=== PATIENT | female | born 1980 | race Caucasian/White ===

== ENCOUNTER 2017-04-10 07:02 | Day surgery (SDC) | payer OTHER ==
[2017-04-10] MEDS ORDERED: Lactated Ringers 1,000 ML IV SCH (07:15)
[2017-04-10] MEDS ORDERED: Sodium Chloride 0.9% 10 ML Syringe FLUSH PRN (07:15)
[2017-04-10] MEDS ORDERED: Glycopyrrolate 0.2 MG/ML 5 ML MDV IV ONE (08:30)
[2017-04-10] MEDS ORDERED: Midazolam 1 MG/ML 2 ML SDV IV ONE (08:30)
[2017-04-10] MEDS ORDERED: Propofol 200 MG/20 ML SDV IV ONE (08:30)
[2017-04-10] MEDS ORDERED: Lidocaine 2% 100 MG/5 ML Syringe IVPUSH ONE (08:30)
--- NOTE | 2017-04-10 08:45 | PCM.OPNOTE ---
- General Post-Op/Procedure Note Date of Surgery/Procedure: 04/10/17 Operative Procedure(s): egd with bx Findings: erosive esophagitis Pre Op Diagnosis: ruq abd pain Post-Op Diagnosis: Same. erosive esophagitis Anesthesia Technique: MAC (s) Primary Surgeon: Dong Montez Anesthesia Provider: Waylon Bellamy Pathology: duodenum, stomach and distal esophagus Complications: None Condition: Good Free Text/Narrative:: see dictation
--- NOTE | 2017-04-10 09:48 | OR ---
DATE OF OPERATION: 04/10/2017 SURGEON: Dong Montez MD PROCEDURE PERFORMED: Esophagogastroduodenoscopy with cold forceps biopsy. PREOPERATIVE DIAGNOSIS: Right upper quadrant abdominal pain. POSTOPERATIVE DIAGNOSIS: Erosive esophagitis. INDICATIONS FOR PROCEDURE: This is a 36-year-old white female, who is referred with a history of right upper quadrant abdominal pain. Workup to date has been negative with regard to biliary disease. She was offered and accepted EGD to further evaluate for possible etiology. DESCRIPTION OF PROCEDURE: After an excellent IV sedation was administered, the bite block was inserted. The flexible endoscope was passed without difficulty down the patient's esophagus into the stomach. The stomach was insufflated. The scope was passed through the pylorus to the second portion of duodenum and slowly withdrawn. The following findings were noted. Duodenum was unremarkable. Biopsies were taken due to her complaint of pain. Stomach was essentially unremarkable. Biopsies were taken due to her complaint of pain. Esophagus at the distal esophagus, there was evidence of erosive esophagitis and biopsies were taken. The remainder of the esophageal exam was unremarkable. The length of the involvement was approximately 3 cm. The stomach was deflated, scope was removed. The patient tolerated the procedure well and was taken to recovery in good condition. /[id number] ANTONY/VIRIDIANA
[2017-04-10 09:52] VITALS: BP 126/86
== END 2017-04-10 10:15 | disposition home or self-care (01) ==
LOC: FB.SDS 07:02
PROVIDERS: ATTEND Surgery
DX: K29.50 Unspecified chronic gastritis without bleeding (principal); K29.80 Duodenitis without bleeding; K20.9 Esophagitis, unspecified; Z79.82 Long term (current) use of aspirin; Z79.899 Other long term (current) drug therapy; E66.01 Morbid (severe) obesity due to excess calories; Z68.43 Body mass index [BMI] 50.0-59.9, adult
CPT/HCPCS: 43239; 81025; J2250; J2704; J7120; 88305; 88313; 88342

== ENCOUNTER 2017-08-19 09:52 | Emergency (ER) | payer OTHER ==
[2017-08-19] MEDS ORDERED: Ketorolac 60 MG/2 ML SDV IM ONE (10:53)
[2017-08-19] MEDS ORDERED: Ciprofloxacin 500 MG Tab PO ONE (10:54)
[2017-08-19] MEDS ORDERED: metroNIDAZOLE 500 MG Tab PO ONE (10:55)
--- NOTE | 2017-08-19 12:17 | EDM.PDOC ---
ED HPI GENERAL MEDICAL PROBLEM - General Chief Complaint: Flank Pain Stated Complaint: ABDOMINAL PAIN Time Seen by Provider: 08/19/17 11:00 Source of Information: Reports: Patient History Limitations: Reports: No Limitations - History of Present Illness INITIAL COMMENTS - FREE TEXT/NARRATIVE: c/o fever and abd pain x 2d pain in LLQ not worked x 2d no radiation no dysuria, no frequency never had colonoscopy had EGD 04/[address] Montez, showed inflammation of esophagus, had been on Protonix, not now on meloxicam in past, not now not taken pain meds some nausea, no vomiting Flank Pain Score (Numeric/FACES): 4 - Related Data Allergies Allergy/AdvReac Type Severity Reaction Status Date / Time No Known Allergies Allergy Verified 08/19/17 11:53 Home Meds: Home Meds Aspirin [Daniels Aspirin] 81 mg PO DAILY 04/09/17 [History] Cholecalciferol (Vitamin D3) [Delta D3] 400 unit PO DAILY 04/09/17 [History] Ciprofloxacin HCl [Cipro] 500 mg PO BID 7 Days #14 tablet 08/19/17 [Rx] Metoclopramide HCl 10 mg PO Q6H PRN #12 tablet 08/19/17 [Rx] Naproxen [Naprosyn] 500 mg PO BID #30 tablet 08/19/17 [Rx] metroNIDAZOLE [Flagyl] 500 mg PO TID 7 Days #21 tablet 08/19/17 [Rx] Past Medical History - Past Health History Medical/Surgical History: Denies Medical/Surgical History Cardiovascular History: Reports: Other (See Below) Other Cardiovascular History: ATYPICAL CHEST PAIN Genitourinary History: Reports: UTI, Recurrent Endocrine/Metabolic History: Reports: Obesity/BMI 30+ Social & Family History - Family History Family Medical History: Noncontributory - Tobacco Use Smoking Status *Q: Never Smoker Second Hand Smoke Exposure: Yes - Caffeine Use Caffeine Use: Reports: None - Recreational Drug Use Recreational Drug Use: No ED ROS GENERAL - Review of Systems Review Of Systems: See Below Constitutional: Reports: Fever, Other (temp 102.9 at home) HEENT: Reports: No Symptoms Respiratory: Reports: No Symptoms Cardiovascular: Reports: No Symptoms Endocrine: Reports: No Symptoms GI/Abdominal: Reports: Abdominal Pain, Nausea. Denies: Vomiting : Reports: No Symptoms, Other (last menses 1w ago, usual 4d flow). Denies: Dysuria Musculoskeletal: Reports: No Symptoms Skin: Reports: No Symptoms Neurological: Reports: No Symptoms Psychiatric: Reports: No Symptoms Hematologic/Lymphatic: Reports: No Symptoms Immunologic: Reports: No Symptoms ED EXAM, GI/ABD - Physical Exam Exam: See Below Exam Limited By: No Limitations General Appearance: Alert, WD/WN, Mild Distress Ears: Normal External Exam, Normal Canal, Hearing Grossly Normal Nose: Normal Inspection, Normal Mucosa, No Blood Throat/Mouth: Normal Inspection, Normal Lips, Normal Teeth, Normal Gums, Normal Oropharynx, Normal Voice, No Airway Compromise Head: Atraumatic, Normocephalic Neck: Normal Inspection, Supple, Non-Tender, Full Range of Motion Respiratory/Chest: No Respiratory Distress, Lungs Clear, Normal Breath Sounds, No Accessory Muscle Use, Chest Non-Tender Cardiovascular: Regular Rate, Rhythm, No Edema, No Gallop, No JVD, No Murmur, No Rub GI/Abdominal Exam: Other (obese, soft, BS present x 4, tender at LLQ along lower 1/2 of L colon, slight tender in suprapubic area, NT at flanks and upper abd and RLQ, no CVAT b/l) Back Exam: Normal Inspection, Full Range of Motion, NT Extremities: Normal Inspection, Normal Range of Motion, Non-Tender, No Pedal Edema Neurological: Alert, Oriented, CN II-XII Intact, Normal Cognition, Normal Gait, No Motor/Sensory Deficits Psychiatric: Normal Affect, Normal Mood Skin Exam: Warm, Dry, Intact, Normal Color, No Rash Lymphatic: No Adenopathy Course - Vital Signs Last Recorded V/S: Last Vital Signs Temp 37.0 C 08/19/17 11:00 Pulse 100 08/19/17 10:00 Resp 16 08/19/17 10:00 BP 144/83 H 08/19/17 10:00 Pulse Ox 100 08/19/17 10:00 - Orders/Labs/Meds Orders: Active Orders 24 hr Category Date Time Status CULTURE URINE [RM] Stat Lab 08/19/17 10:00 Received Ondansetron [Zofran ODT] Med 08/19/17 12:24 Once 4 mg PO ONETIME ONE Labs: Laboratory Tests 08/19/17 08/19/17 08/19/17 Range/Units 10:00 10:00 11:17 WBC 8.9 (4.5-12.0) X10-3/uL RBC 4.60 (3.23-5.20) x10(6)uL Hgb 13.2 (11.5-15.5) g/dL Hct 39.5 (30.0-51.3) % MCV 85.7 (80-96) fL MCH 28.6 (27.7-33.6) pg MCHC 33.4 (32.2-35.4) g/dL RDW 13.5 (11.5-15.5) % Plt Count 281 (125-369) X10(3)uL MPV 7.9 (7.4-10.4) fL Neut % (Auto) 65.0 (46-82) % Lymph % (Auto) 24.8 (13-37) % [place] % (Auto) 7.3 (4-12) % Eos % (Auto) 3 (1.0-5.0) % Baso % (Auto) 0 (0-2) % Neut # (Auto) 5.8 (1.6-8.3) # Lymph # (Auto) 2.2 (0.6-5.0) # [place] # (Auto) 0.7 (0.0-1.3) # Eos # (Auto) 0.2 (0.0-0.8) # Baso # (Auto) 0.0 (0.0-0.2) # Sodium (135-145) mmol/L Potassium (3.5-5.3) mmol/L Chloride (100-110) mmol/L Carbon Dioxide (21-32) mmol/L BUN (7-18) mg/dL Creatinine (0.55-1.02) mg/dL Est Cr Clr Drug Dosing Estimated GFR (MDRD) (>60) BUN/Creatinine Ratio (9-20) Glucose (80-116) mg/dL Calcium (8.6-10.2) mg/dL Total Bilirubin (0.1-1.3) mg/dL AST (5-25) IU/L ALT (12-36) U/L Alkaline Phosphatase (56-112) IU/L C-Reactive Protein (0.5-0.9) mg/dL Total Protein (6.0-8.0) g/dL Albumin (3.5-5.2) g/dL Globulin g/dL Albumin/Globulin Ratio Urine Color Yellow (YELLOW) Urine Appearance Clear (CLEAR) Urine pH 5.0 (5.0-6.5) Ur Specific [place] 1.020 (1.010-1.025) Urine Protein Negative (NEGATIVE) mg/dL Urine Glucose (UA) Normal (NEGATIVE) mg/dL Urine Ketones Negative (NEGATIVE) mg/dL Urine Occult Blood Negative (NEGATIVE) Urine Nitrite Negative (NEGATIVE) Urine Bilirubin Negative (NEGATIVE) Urine Urobilinogen Normal (NEGATIVE) mg/dL Ur Leukocyte Esterase Moderate H (NEGATIVE) Urine RBC 0-5 (0) Urine WBC 5-10 (0) Ur Squamous Epith Cells Few H (NS,R,O) Urine Bacteria Moderate H (NS) Urine HCG, Qual Negative (NEGATIVE) 08/19/17 08/19/17 Range/Units 11:17 11:17 WBC (4.5-12.0) X10-3/uL RBC (3.23-5.20) x10(6)uL Hgb (11.5-15.5) g/dL Hct (30.0-51.3) % MCV (80-96) fL MCH (27.7-33.6) pg MCHC (32.2-35.4) g/dL RDW (11.5-15.5) % Plt Count (125-369) X10(3)uL MPV (7.4-10.4) fL Neut % (Auto) (46-82) % Lymph % (Auto) (13-37) % [place] % (Auto) (4-12) % Eos % (Auto) (1.0-5.0) % Baso % (Auto) (0-2) % Neut # (Auto) (1.6-8.3) # Lymph # (Auto) (0.6-5.0) # [place] # (Auto) (0.0-1.3) # Eos # (Auto) (0.0-0.8) # Baso # (Auto) (0.0-0.2) # Sodium 138 (135-145) mmol/L Potassium 4.0 (3.5-5.3) mmol/L Chloride 103 (100-110) mmol/L Carbon Dioxide 27 (21-32) mmol/L BUN 8 (7-18) mg/dL Creatinine 0.7 (0.55-1.02) mg/dL Est Cr Clr Drug Dosing TNP Estimated GFR (MDRD) > 60 (>60) BUN/Creatinine Ratio 11.4 (9-20) Glucose 100 (80-116) mg/dL Calcium 8.9 (8.6-10.2) mg/dL Total Bilirubin 0.3 (0.1-1.3) mg/dL AST 12 (5-25) IU/L ALT 18 (12-36) U/L Alkaline Phosphatase 52 L (56-112) IU/L C-Reactive Protein 1.8 H (0.5-0.9) mg/dL Total Protein 8.0 (6.0-8.0) g/dL Albumin 3.6 (3.5-5.2) g/dL Globulin 4.4 g/dL Albumin/Globulin Ratio 0.8 Urine Color (YELLOW) Urine Appearance (CLEAR) Urine pH (5.0-6.5) Ur Specific [place] (1.010-1.025) Urine Protein (NEGATIVE) mg/dL Urine Glucose (UA) (NEGATIVE) mg/dL Urine Ketones (NEGATIVE) mg/dL Urine Occult Blood (NEGATIVE) Urine Nitrite (NEGATIVE) Urine Bilirubin (NEGATIVE) Urine Urobilinogen (NEGATIVE) mg/dL Ur Leukocyte Esterase (NEGATIVE) Urine RBC (0) Urine WBC (0) Ur Squamous Epith Cells (NS,R,O) Urine Bacteria (NS) Urine HCG, Qual (NEGATIVE) Meds: Medications Discontinued Medications Generic Name Dose Route Start Last Admin Trade Name Christopher PRN Reason Stop Dose Admin Ciprofloxacin 500 mg 08/19/17 10:54 08/19/17 11:59 Ciprofloxacin Hcl PO 08/19/17 10:55 500 mg ONETIME ONE Administration Ketorolac Tromethamine 60 mg 08/19/17 10:53 08/19/17 12:00 Toradol IM 08/19/17 10:54 60 mg ONETIME ONE Administration Metronidazole 500 mg 08/19/17 10:55 08/19/17 11:59 Flagyl PO 08/19/17 10:56 500 mg ONETIME ONE Administration - Re-Assessments/Exams Free Text/Narrative Re-Assessment/Exam: 08/19/17 12:25 feeling better after Toradol, still some N, missed work x last 3d CBC & CMP neg, CRP 1.8, u/a with WBC and bacteria has UTI however PE more c/w diverticulitis will tx for both UTI and diverticulitis will need imaging if she does not feel better on antibiotics Departure - Departure Time of Disposition: 12:26 Disposition: DC/Tfer to Medicaid Nur Fac 64 Condition: Good Clinical Impression: Febrile urinary tract infection, Abdominal wall pain in left lower quadrant - Discharge Information Prescriptions: Ciprofloxacin HCl [Cipro] 500 mg PO BID 7 Days #14 tablet Metoclopramide HCl 10 mg PO Q6H PRN #12 tablet PRN Reason: Nausea metroNIDAZOLE [Flagyl] 500 mg PO TID 7 Days #21 tablet Naproxen [Naprosyn] 500 mg PO BID #30 tablet Referrals: Kojo Garsia MD [Primary Care Provider] - Forms: ED Department Discharge Additional Instructions: For infection, take ciprofloxacin 500 mg 1 tab 2 times a day for 7 days. For infection, take metronidazole 500 mg 1 tab 3 times a day for 7 days. For pain, take naprosyn 500 mg 1 tab 2 times a day for 7 days. For pain, also take acetaminophen 500 mg 2 tabs 4 times a day. For nausea, take metoclopramide 10 mg 1 tab every 6 hours as needed. No work 08/16 to 08/21. See Dr Garsia in 2 days. Return to ED if you are feeling worse. Call your Physician or Return to Emergency Department if: * Your condition worsens in any way. * You develop fever greater than 100.4. * You have vomitting that does not stop with medications. * You have pain that is not controlled with medications. - My Orders Last 24 Hours: My Active Orders 08/19/17 10:00 CULTURE URINE [RM] Stat 08/19/17 12:24 Ondansetron [Zofran ODT] 4 mg PO ONETIME ONE - Assessment/Plan Last 24 Hours: My Active Orders 08/19/17 10:00 CULTURE URINE [RM] Stat 08/19/17 12:24 Ondansetron [Zofran ODT] 4 mg PO ONETIME ONE
[2017-08-19] MEDS ORDERED: Ondansetron 4 MG Tab.DIS PO ONE (12:24)
[2017-08-19 13:48] VITALS: BP 138/66
== END 2017-08-19 12:43 ==
LOC: FB.ED 09:52
DX: N39.0 Urinary tract infection, site not specified (principal); R10.32 Left lower quadrant pain; E66.9 Obesity, unspecified; Z79.82 Long term (current) use of aspirin
CPT/HCPCS: 36415; 80053; 81001; 81025; 85025; 86140; 87086; 96372; 99284; A9270; J1885

== ENCOUNTER 2017-09-10 19:10 | Emergency (ER) | payer OTHER ==
[2017-09-10 19:26] VITALS: BP 160/90
[2017-09-10] MEDS ORDERED: Aluminum Hydroxide/Magnesium Hydroxide Susp 30 ML Cup PO STA (19:44)
--- NOTE | 2017-09-10 19:54 | EDM.PDOC ---
ED HPI GENERAL MEDICAL PROBLEM - General Chief Complaint: Gastrointestinal Problem Stated Complaint: BLOODY STOOL Time Seen by Provider: 09/10/17 19:22 Source of Information: Reports: Patient, Family History Limitations: Reports: No Limitations - History of Present Illness INITIAL COMMENTS - FREE TEXT/NARRATIVE: 36 y.o.w.f -morbid obese-came with her mom to the ed due to blood in her stool on 2 occasions and epigastric pain. Pt ran out of her PPIs. Pt underwent and upper Endoscopy a few months ago and was dx'd with Gastric reflux disease. No N? V/D no Dizziness or any other acute medical issues. BP 160/90 puse 105 Temp 36.2 Pulse ox 99% on RA. Onset Date: 09/08/17 Onset Time: 07:00 Duration: Day(s):, Intermittent Location: Reports: Abdomen Quality: Reports: Other (occ brightred blood in stool) Severity: Mild Improves with: Reports: Rest Worsens with: Reports: Movement Associated Symptoms: Reports: Other (occ epigastric pain. Pt ran out of her PPBs ) - Related Data Allergies Allergy/AdvReac Type Severity Reaction Status Date / Time No Known Allergies Allergy Verified 09/10/17 19:43 Home Meds: Home Meds Dicyclomine [Bentyl] 10 mg PO QIDACANDBED 09/10/17 [History] Omeprazole [Omeprazole] 20 mg PO DAILY 09/10/17 [History] Pantoprazole [ProTONIX Granules] 40 mg PO DAILY #30 packet 09/10/17 [Rx] Past Medical History - Past Health History Medical/Surgical History: Denies Medical/Surgical History Cardiovascular History: Reports: Other (See Below) Other Cardiovascular History: ATYPICAL CHEST PAIN Gastrointestinal History: Reports: Other (See Below) Other Gastrointestinal History: overweight Genitourinary History: Reports: UTI, Recurrent Endocrine/Metabolic History: Reports: Obesity/BMI 30+ - Infectious Disease History Infectious Disease History: Reports: Chicken Pox - Past Surgical History HEENT Surgical History: Reports: Other (See Below) Other HEENT Surgeries/Procedures: had oral surgery at one time Social & Family History - Family History Family Medical History: Noncontributory - Tobacco Use Smoking Status *Q: Never Smoker Second Hand Smoke Exposure: Yes - Caffeine Use Caffeine Use: Reports: Soda Caffeine Use Comment: 2 cans a day - Alcohol Use Days Per Week of Alcohol Use: 0 - Recreational Drug Use Recreational Drug Use: No ED ROS GENERAL - Review of Systems Review Of Systems: See Below Constitutional: Reports: No Symptoms HEENT: Reports: No Symptoms Respiratory: Reports: No Symptoms Cardiovascular: Reports: No Symptoms Endocrine: Reports: No Symptoms GI/Abdominal: Reports: Abdominal Pain (epigastric), Bloody Stool (occ) : Reports: No Symptoms Musculoskeletal: Reports: No Symptoms Skin: Reports: No Symptoms Neurological: Reports: No Symptoms Psychiatric: Reports: No Symptoms Hematologic/Lymphatic: Reports: No Symptoms Immunologic: Reports: No Symptoms ED EXAM, GI/ABD - Physical Exam Exam: See Below Exam Limited By: No Limitations General Appearance: Alert, WD/WN, No Apparent Distress, Obese (morbid) Eyes: Bilateral: Normal Appearance Ears: Normal External Exam Nose: Normal Inspection Throat/Mouth: Normal Inspection Head: Atraumatic, Normocephalic Neck: Normal Inspection, Supple, Non-Tender, Full Range of Motion Respiratory/Chest: No Respiratory Distress, Lungs Clear, Normal Breath Sounds Cardiovascular: Normal Peripheral Pulses, Regular Rate, Rhythm, No Edema, No Gallop, No JVD, No Murmur, No Rub GI/Abdominal Exam: Normal Bowel Sounds, Soft, Non-Tender, No Organomegaly, No Abnormal Bruit, Other (external hemorrhids, no bleed) (Female) Exam: Deferred Rectal (Female) Exam: Normal Exam Back Exam: Normal Inspection, Full Range of Motion Extremities: Normal Inspection, Normal Range of Motion Neurological: Alert, Oriented, CN II-XII Intact, Normal Cognition, Normal Gait Psychiatric: Normal Affect, Normal Mood Skin Exam: Warm, Dry, Intact, Normal Color, No Rash Lymphatic: No Adenopathy Course - Vital Signs Text/Narrative:: 36 y.o.w.f -morbid obese-came with her mom to the ed due to blood in her stool on 2 occasions and epigastric pain. Pt ran out of her PPIs. Pt underwent and upper Endoscopy a few months ago and was dx'd with Gastric reflux disease. No N? V/D no Dizziness or any other acute medical issues. BP 160/90 puse 105 Temp 36.5 Pulse ox 99% on RA. PE: Morbid obese 36 y.o.w.f with epigastic tenderness, minor, no rebound no guarding. one external hemorrhoid, no thrombosed, no bleed. Labs: CBC and BMO were nl, Glc was 160, however. Impression: Hematochezia, external hemorrhoid Tx: Meds refill for PPI Plan: D/C with instructions. Last Recorded V/S: Last Vital Signs Temp 36.5 C 09/10/17 19:39 Pulse 105 H 09/10/17 19:39 Resp 19 09/10/17 19:39 BP 160/90 H 09/10/17 19:39 Pulse Ox 100 09/10/17 19:39 - Orders/Labs/Meds Labs: Laboratory Tests 09/10/17 09/10/17 09/10/17 Range/Units 19:55 19:55 19:55 WBC 11.4 (4.5-12.0) X10-3/uL RBC 4.44 (3.23-5.20) x10(6)uL Hgb 12.8 (11.5-15.5) g/dL Hct 38.1 (30.0-51.3) % MCV 85.7 (80-96) fL MCH 28.7 (27.7-33.6) pg MCHC 33.5 (32.2-35.4) g/dL RDW 13.3 (11.5-15.5) % Plt Count 299 (125-369) X10(3)uL MPV 8.5 (7.4-10.4) fL Neut % (Auto) 75.4 (46-82) % Lymph % (Auto) 17.5 (13-37) % [place] % (Auto) 5.1 (4-12) % Eos % (Auto) 2 (1.0-5.0) % Baso % (Auto) 0 (0-2) % Neut # (Auto) 8.6 H (1.6-8.3) # Lymph # (Auto) 2.0 (0.6-5.0) # [place] # (Auto) 0.6 (0.0-1.3) # Eos # (Auto) 0.2 (0.0-0.8) # Baso # (Auto) 0.0 (0.0-0.2) # PT 9.7 (8.7-11.1) INR 0.96 (0.89-1.13) Sodium 139 (135-145) mmol/L Potassium 4.0 (3.5-5.3) mmol/L Chloride 102 (100-110) mmol/L Carbon Dioxide 24 (21-32) mmol/L BUN 12 (7-18) mg/dL Creatinine 0.9 (0.55-1.02) mg/dL Est Cr Clr Drug Dosing 69.00 mL/min Estimated GFR (MDRD) > 60 (>60) BUN/Creatinine Ratio 13.3 (9-20) Glucose 196 H D (80-116) mg/dL Calcium 8.9 (8.6-10.2) mg/dL Meds: Medications Discontinued Medications Generic Name Dose Route Start Last Admin Trade Name Freq PRN Reason Stop Dose Admin Al Hydroxide/Mg Hydroxide 30 ml 09/10/17 19:44 09/10/17 19:48 Mag-Al Susp PO 09/10/17 19:45 30 ml ONETIME STA Administration Departure - Departure Time of Disposition: 20:34 Disposition: Home, Self-Care 01 Condition: Good Clinical Impression: Hematochezia, Medication refill, Pleurisy - Discharge Information Prescriptions: Pantoprazole [ProTONIX Granules] 40 mg PO DAILY #30 packet Instructions: Hemorrhoids, [id number], Secondhand Smoke Referrals: Kojo Garsia MD [Primary Care Provider] - Forms: ED Department Discharge Additional Instructions: Please take the meds as recommended, please f/u with your PMD/Dr. Montez. please come back if your symptoms get worse acutely
== END 2017-09-10 20:45 | disposition home or self-care (01) ==
LOC: FB.ED 19:10
DX: K64.4 Residual hemorrhoidal skin tags (principal); R09.1 Pleurisy; Z76.0 Encounter for issue of repeat prescription; E66.01 Morbid (severe) obesity due to excess calories; Z77.22 Contact with and (suspected) exposure to environmental tobacco smoke (acute) (chronic); Z68.43 Body mass index [BMI] 50.0-59.9, adult
CPT/HCPCS: 36415; 80048; 85025; 85610; 99284; A9270

== ENCOUNTER 2017-09-20 07:51 | Day surgery (SDC) | payer OTHER ==
[~2017-09-20 07:51] MED LIST: Lactated Ringers 1,000 ML IV SCH
[2017-09-20] MEDS ORDERED: Propofol 200 MG/20 ML SDV IV ONE (07:52)
--- NOTE | 2017-09-20 09:20 | PCM.OPNOTE ---
- General Post-Op/Procedure Note Date of Surgery/Procedure: 09/20/17 Operative Procedure(s): c scope Findings: sigmoid diverticulosis Pre Op Diagnosis: luq abd pain and hx of bleeding per rectum Post-Op Diagnosis: sigmoid diverticulosis Anesthesia Technique: OPHELIA Primary Surgeon: Dong Montez Anesthesia Provider: Waylon Bellamy Pathology: none Complications: None Condition: Good Free Text/Narrative:: see dictation
[2017-09-20 10:29] VITALS: BP 129/73
--- NOTE | 2017-09-20 12:17 | OR ---
DATE OF OPERATION: 09/20/2017 SURGEON: Dong Montez MD PROCEDURE PERFORMED: Colonoscopy. PREOPERATIVE DIAGNOSIS: History of left upper quadrant abdominal pain as well as bleeding per rectum. POSTOPERATIVE DIAGNOSIS: Sigmoid diverticulosis. INDICATIONS FOR PROCEDURE: This is a 36-year-old white female who was referred with the above-mentioned complaints. She was offered and accepted a colonoscopy. DESCRIPTION OF PROCEDURE: After an excellent IV sedation was administered, digital rectal exam was performed. No marked abnormality was noted. The flexible colonoscope was inserted and advanced to the cecum without difficulty. The prep was excellent. The following findings were noted. Ascending colon was unremarkable. Transverse colon, unremarkable. Descending colon, unremarkable. Sigmoid, occasional diverticula noted. Rectum, unremarkable and on retroflexing the scope and examining the anus, there was really no marked hemorrhoidal tissue. The colon was deflated. The scope was removed. We will have the patient start a high-fiber diet of either med to include Metamucil and Citrucel as well as a probiotic and follow up in one month if there is no improvement. /[id number] /MODL
== END 2017-09-20 10:25 | disposition home or self-care (01) ==
LOC: FB.SDS 07:51
PROVIDERS: ATTEND Surgery
DX: K57.30 Diverticulosis of large intestine without perforation or abscess without bleeding (principal); E66.01 Morbid (severe) obesity due to excess calories; Z79.82 Long term (current) use of aspirin; Z79.899 Other long term (current) drug therapy; Z68.43 Body mass index [BMI] 50.0-59.9, adult
CPT/HCPCS: 45378; 81025; J2704; J7120

== ENCOUNTER 2017-09-22 20:23 | Emergency (ER) | payer OTHER ==
[2017-09-22] MEDS ORDERED: Ciprofloxacin 500 MG Tab PO STA (20:31)
--- NOTE | 2017-09-22 20:35 | EDM.PDOC ---
ED HPI GENERAL MEDICAL PROBLEM - General Chief Complaint: Respiratory Problem Stated Complaint: CHEST PAIN Time Seen by Provider: 09/22/17 20:23 Source of Information: Reports: Patient History Limitations: Reports: No Limitations - History of Present Illness INITIAL COMMENTS - FREE TEXT/NARRATIVE: 36 y.o.w.f came the the ed with a prd. cough for 1-2 days. Pt does not smoke. No F/C N/V or any other acute medical issues. BP 146/108 Pulse 104 Temp 37.1 Pulse ox 98% on RA, RR 18. Onset: Today Onset Date: 09/21/17 Onset Time: 07:00 Duration: Day(s):, Intermittent Location: Reports: Chest Quality: Reports: Ache Severity: Mild Improves with: Reports: Rest Worsens with: Reports: Movement Context: Reports: Sick Contact - Related Data Allergies Allergy/AdvReac Type Severity Reaction Status Date / Time No Known Allergies Allergy Verified 09/22/17 20:29 Home Meds: Home Meds Aspirin [Halfprin] 81 mg PO Q48H 09/19/17 [History] Cholecalciferol (Vitamin D3) [Vitamin D3] 400 unit PO DAILY 09/19/17 [History] Ciprofloxacin HCl [Cipro] 500 mg PO BID #20 tablet 09/22/17 [Rx] Past Medical History - Past Health History Medical/Surgical History: Denies Medical/Surgical History Cardiovascular History: Reports: Other (See Below) Other Cardiovascular History: ATYPICAL CHEST PAIN Respiratory History: Reports: None Gastrointestinal History: Reports: Gastritis, Other (See Below) Other Gastrointestinal History: overweight Genitourinary History: Reports: UTI, Recurrent CULLET W[employer]ER History: Reports: None Musculoskeletal History: Reports: None Neurological History: Reports: None Psychiatric History: Reports: None Endocrine/Metabolic History: Reports: Obesity/BMI 30+ Hematologic History: Reports: None Immunologic History: Reports: None Oncologic (Cancer) History: Reports: None Dermatologic History: Reports: None - Infectious Disease History Infectious Disease History: Reports: Chicken Pox - Past Surgical History Head Surgeries/Procedures: Reports: None HEENT Surgical History: Reports: Oral Surgery, Other (See Below) Other HEENT Surgeries/Procedures: had oral surgery at one time Respiratory Surgical History: Reports: None GI Surgical History: Reports: EGD Female Surgical History: Reports: None Endocrine Surgical History: Reports: None Neurological Surgical History: Reports: None Musculoskeletal Surgical History: Reports: None Oncologic Surgical History: Reports: None Dermatological Surgical History: Reports: None Social & Family History - Family History Family Medical History: Noncontributory - Tobacco Use Smoking Status *Q: Never Smoker Second Hand Smoke Exposure: Yes - Caffeine Use Caffeine Use: Reports: None Caffeine Use Comment: 2 cans a day - Alcohol Use Days Per Week of Alcohol Use: 0 - Recreational Drug Use Recreational Drug Use: No ED ROS GENERAL - Review of Systems Review Of Systems: See Below Constitutional: Reports: No Symptoms HEENT: Reports: No Symptoms Respiratory: Reports: Cough, Sputum Cardiovascular: Reports: No Symptoms Endocrine: Reports: No Symptoms GI/Abdominal: Reports: No Symptoms : Reports: No Symptoms Musculoskeletal: Reports: No Symptoms Skin: Reports: No Symptoms Neurological: Reports: No Symptoms Psychiatric: Reports: No Symptoms Hematologic/Lymphatic: Reports: No Symptoms Immunologic: Reports: No Symptoms ED EXAM, GENERAL - Physical Exam Exam: See Below Exam Limited By: No Limitations General Appearance: Alert, WD/WN, No Apparent Distress, Obese Eye Exam: Bilateral Eye: Normal Inspection Ears: Normal External Exam Ear Exam: Bilateral Ear: Auricle Normal Nose: Normal Inspection, Normal Mucosa Throat/Mouth: Normal Inspection, Normal Lips, No Airway Compromise Head: Atraumatic, Normocephalic Neck: Normal Inspection, Supple, Non-Tender, Full Range of Motion Respiratory/Chest: Rhonchi Cardiovascular: Normal Peripheral Pulses, Regular Rate, Rhythm GI/Abdominal: Normal Bowel Sounds (Female) Exam: Deferred Rectal (Female) Exam: Deferred Back Exam: Normal Inspection Extremities: Normal Inspection Neurological: Alert, Oriented, CN II-XII Intact, Normal Cognition, Normal Gait, No Motor/Sensory Deficits Psychiatric: Normal Affect, Normal Mood Skin Exam: Warm, Dry, Intact, Normal Color, No Rash Lymphatic: No Adenopathy Course - Vital Signs Text/Narrative:: 36 y.o.w.f came the the ed with a prd. cough for 1-2 days. Pt does not smoke. No F/C N/V or any other acute medical issues. BP 146/108 Pulse 104 Temp 37.1 Pulse ox 98% on RA, RR 18. PE: Rhonchi with prod cough Impression: Acute Bronchitis Tx: cipro Reexam: Improved Plan: D/C with instructions Last Recorded V/S: Last Vital Signs Temp 37.1 C 09/22/17 20:31 Pulse 102 H 09/22/17 20:45 Resp 20 09/22/17 20:31 BP 148/97 H 09/22/17 20:45 Pulse Ox 98 09/22/17 20:31 - Orders/Labs/Meds Meds: Medications Discontinued Medications Generic Name Dose Route Start Last Admin Trade Name Christopher PRN Reason Stop Dose Admin Ciprofloxacin 500 mg 09/22/17 20:31 09/22/17 20:41 Ciprofloxacin Hcl PO 09/22/17 20:32 500 mg ONETIME STA Administration Departure - Departure Time of Disposition: 20:32 Disposition: Home, Self-Care 01 Condition: Good Clinical Impression: Acute bronchitis Qualifiers: Bronchitis organism: unspecified organism Qualified Code(s): J20.9 - Acute bronchitis, unspecified - Discharge Information Prescriptions: Ciprofloxacin HCl [Cipro] 500 mg PO BID #20 tablet Referrals: Kojo Garsia MD [Primary Care Provider] - Forms: ED Department Discharge Additional Instructions: Please increase water intake, please take the meds as recommended, please follow up, come back if your symptoms get worse acutely
[2017-09-22 20:51] VITALS: BP 148/97
== END 2017-09-22 20:45 | disposition home or self-care (01) ==
LOC: FB.ED 20:23
DX: J20.9 Acute bronchitis, unspecified (principal); Z77.22 Contact with and (suspected) exposure to environmental tobacco smoke (acute) (chronic); Z79.82 Long term (current) use of aspirin
CPT/HCPCS: 99284; A9270

== ENCOUNTER 2017-10-23 23:41 | Emergency (ER) | payer OTHER ==
[2017-10-24] MEDS ORDERED: hydrOXYzine HCl 50 MG/ML SDV IM ONE (00:41)
[2017-10-24] MEDS ORDERED: Ketorolac 60 MG/2 ML SDV IM ONE (00:41)
[2017-10-24 02:44] VITALS: BP 148/81
--- NOTE | 2017-10-24 04:37 | ER ---
DATE SEEN: 10/23/2017 CHIEF COMPLAINT: Headache. HISTORY OF PRESENT ILLNESS: This is a 37-year-old female complaining of a headache. This started last night. It is moderate to severe, pounding, associated with nausea and light sensitivity consistent with typical attack of migraine headaches. She has not tried anything to relieve the pain. PAST MEDICAL HISTORY: Abdominal pain, obesity. ALLERGIES: No known allergies. PHYSICAL EXAMINATION: GENERAL: She is not in any cardiopulmonary distress. VITAL SIGNS: Unremarkable. ENT: Negative. EYES: PERRL. MENTAL STATUS: Flat affect. NEUROLOGIC: Normal. IMPRESSION: Migraine headache. PLAN: Ketorolac and Vistaril. Rest and follow up p.r.n. TIME SEEN: 0042 hours. /[id number] MATHEW/VIRIDIANA
== END 2017-10-24 01:00 | disposition home or self-care (01) ==
LOC: FB.ED 23:41
DX: G43.909 Migraine, unspecified, not intractable, without status migrainosus (principal); E66.9 Obesity, unspecified
CPT/HCPCS: 96372; 99282; J1885; J3410

== ENCOUNTER 2019-12-25 01:47 | Emergency (ER) | payer BC, OTHER ==
[2019-12-25] MEDS: Albuterol/Ipratropium 3.0-0.5 MG/3 ML Neb Soln NEB ONE (02:12)
--- NOTE | 2019-12-25 03:18 | EDM.PDOC ---
ED HPI GENERAL MEDICAL PROBLEM - General Chief Complaint: Respiratory Problem Stated Complaint: SOB; SORE THROAT Time Seen by Provider: 12/25/19 01:50 Source of Information: Reports: Patient History Limitations: Reports: No Limitations - History of Present Illness INITIAL COMMENTS - FREE TEXT/NARRATIVE: Patient presented to the ED because of sore throat,dyspnea and fever although her oxygen saturation was 98% on RA and her Temp upon triage was 98.2. She was apparently exposed to a co-worker who works at a kitchen in school at [place], [place] who's tested positive for [place] V. Mukesh't doesn't know if her co- worker was tested or not. - Related Data Allergies Allergy/AdvReac Type Severity Reaction Status Date / Time No Known Allergies Allergy Verified 04/16/18 01:07 Home Meds: Home Meds Aspirin [Halfprin] 81 mg PO DAILY 09/19/17 [History] Cholecalciferol (Vitamin D3) [Vitamin D3] 400 unit PO BID 09/19/17 [History] L.acidoph,Paracasei, B.lactis [Probiotic] 1 tab PO DAILY 10/24/17 [History] Citalopram Hydrobromide [Celexa] 20 mg PO DAILY 04/05/18 [History] Multivitamin [Gummi Bear Multivitamin] 1 each PO DAILY 04/05/18 [History] Pantoprazole Sodium [Protonix] 40 mg PO DAILY 04/05/18 [History] Cholecalciferol (Vitamin D3) [Vitamin D3] 1,000 unit PO DAILY 04/16/18 [History] Citalopram [Citalopram HBr] 20 mg PO DAILY 04/16/18 [History] L.acidoph,Paracasei, B.lactis [Probiotic] 1 each PO DAILY 04/16/18 [History] Pantoprazole [ProTONIX] 40 mg PO DAILY 04/16/18 [History] Ciprofloxacin HCl [Cipro] 500 mg PO BID #20 tablet 08/31/18 [Rx] Phenazopyridine HCl [Pyridium] 200 mg PO Q8HR #9 tablet 08/31/18 [Rx] Past Medical History - Past Health History Medical/Surgical History: Denies Medical/Surgical History Cardiovascular History: Reports: Other (See Below) Other Cardiovascular History: Hx atypical chest pain. Respiratory History: Reports: None Gastrointestinal History: Reports: Diverticulosis, Gastritis, GERD Other Gastrointestinal History: overweight Genitourinary History: Reports: UTI, Recurrent [employer]SE[employer] History: Reports: None Musculoskeletal History: Reports: None Neurological History: Reports: None Psychiatric History: Reports: Anxiety, None Endocrine/Metabolic History: Reports: Obesity/BMI 30+ Hematologic History: Reports: None Immunologic History: Reports: None Oncologic (Cancer) History: Reports: None Dermatologic History: Reports: None - Infectious Disease History Infectious Disease History: Reports: Chicken Pox - Past Surgical History Head Surgeries/Procedures: Reports: None HEENT Surgical History: Reports: Other (See Below), Oral Surgery Social & Family History - Family History Family Medical History: Noncontributory - Tobacco Use Smoking Status *Q: Never Smoker - Caffeine Use Caffeine Use: Reports: None, Soda Other Caffeine Use: 2 cans day Caffeine Use Comment: 2 cans a day ED ROS GENERAL - Review of Systems Review Of Systems: See Below Constitutional: Reports: No Symptoms HEENT: Reports: No Symptoms Respiratory: Reports: Shortness of Breath Cardiovascular: Reports: No Symptoms Endocrine: Reports: No Symptoms GI/Abdominal: Reports: No Symptoms ED EXAM, GENERAL - Physical Exam Exam: See Below Exam Limited By: No Limitations General Appearance: Alert, No Apparent Distress Eye Exam: Bilateral Eye: Proptosis Ears: Normal External Exam Nose: Normal Inspection, Normal Mucosa Throat/Mouth: Normal Inspection, Normal Lips Head: Atraumatic, Normocephalic Neck: Normal Inspection, Supple, Non-Tender Respiratory/Chest: No Respiratory Distress, Lungs Clear, Normal Breath Sounds Cardiovascular: Normal Peripheral Pulses, Regular Rate, Rhythm GI/Abdominal: Normal Bowel Sounds, Soft, Non-Tender, No Organomegaly Back Exam: Normal Inspection, Full Range of Motion Course - Vital Signs Text/Narrative:: influenza A/B-neg [id number] duoneb Last Recorded V/S: Last Vital Signs Temp 36.5 C 12/25/19 01:47 Pulse 95 12/25/19 01:47 Resp 18 12/25/19 01:47 BP 143/97 H 12/25/19 01:47 Pulse Ox 100 12/25/19 01:47 - Orders/Labs/Meds Orders: Active Orders 24 hr Category Date Time Status RT Aerosol Therapy [RC] ASDIRECTED Care 12/25/19 02:09 Active CORONAVIRUS COVID-19, [facility] Stat Lab 12/25/19 02:15 Received INPATIENT Stat Lab 12/25/19 02:15 Received Isolation [COMM] Routine Oth 12/25/19 02:03 Ordered Meds: Medications Discontinued Medications Generic Name Dose Route Start Last Admin Trade Name Remyq PRN Reason Stop Dose Admin Albuterol/Ipratropium 3 ml 12/25/19 02:09 12/25/19 02:12 Duoneb 3.0-0.5 Mg/3 Ml NEB 12/25/19 02:10 3 ml ONETIME ONE Administration Departure - Departure Time of Disposition: 03:15 Disposition: Home, Self-Care 01 Condition: Good Clinical Impression: URI (upper respiratory infection) - Discharge Information Instructions: Viral Respiratory Infection, [id number] Referrals: Kojo Garsia MD [Primary Care Provider] - Forms: ED Department Discharge Additional Instructions: Please read discharge instructions on viral URI Increase oral fluids tylenol 1000 mg every 8 hours as needed for fever we will call you if your Covid-19 test is positive Isolate yourself until your test result is back Sepsis Event Note - Evaluation Sepsis Screening Result: No Definite Risk - Focused Exam Vital Signs: Vital Signs Temp Pulse Resp BP Pulse Ox 12/25/19 01:47 36.5 C 95 18 143/97 H 100 Date Exam was Performed: 12/25/19 Time Exam was Performed: 03:32 - My Orders Last 24 Hours: My Active Orders 12/25/19 02:03 Isolation [COMM] Routine 12/25/19 02:09 RT Aerosol Therapy [RC] ASDIRECTED 12/25/19 02:15 CORONAVIRUS COVID-19, [facility] Stat INPATIENT Stat - Assessment/Plan Last 24 Hours: My Active Orders 12/25/19 02:03 Isolation [COMM] Routine 12/25/19 02:09 RT Aerosol Therapy [RC] ASDIRECTED 12/25/19 02:15 CORONAVIRUS COVID-19, [facility] Stat INPATIENT Stat
== END 2019-12-25 03:45 | disposition home or self-care (01) ==
LOC: FB.ED 01:47
DX: J06.9 Acute upper respiratory infection, unspecified (principal); K21.9 Gastro-esophageal reflux disease without esophagitis; F41.9 Anxiety disorder, unspecified; E66.9 Obesity, unspecified; Z79.82 Long term (current) use of aspirin; Z79.899 Other long term (current) drug therapy; Z20.828 Contact with and (suspected) exposure to other viral communicable diseases
CPT/HCPCS: 87804; 87804-59; 94640; 99285-25; J7620-GY; U0002

== ENCOUNTER 2021-12-24 18:31 | Emergency (ER) | payer BC ==
[2021-12-24] MEDS ORDERED: metroNIDAZOLE 500 MG Tab PO ONE (18:32)
[2021-12-24] MEDS ORDERED: Ketorolac 10 MG Tab PO ONE (18:32)
[2021-12-24] MEDS ORDERED: Doxycycline 100 MG Tab PO ONE (18:32)
[2021-12-24] MEDS ORDERED: Sodium Chloride 0.9% 10 ML Syringe FLUSH PRN (22:32)
[2021-12-24] MEDS ORDERED: Ondansetron 4 MG/2 ML SDV IVPUSH ONE (22:33)
[2021-12-24] MEDS ORDERED: Sodium Chloride 0.9% 1,000 ML IV ONE (22:33)
[2021-12-24] MEDS ORDERED: Ketorolac 30 MG/ML SDV IVPUSH ONE (22:33)
[2021-12-24] MEDS ORDERED: Iopamidol 755 Mg/ML 100 ML Bottle IV ONE (22:46)
[2021-12-25] MEDS ORDERED: cefTRIAXone 1 GM Vial IVPUSH ONE (00:36)
[2021-12-25] MEDS ORDERED: Doxycycline 100 MG Tab PO ONE ×2 (00:37→00:53)
[2021-12-25] MEDS ORDERED: metroNIDAZOLE 500 MG Tab PO ONE ×2 (00:42→00:53)
== END 2021-12-25 01:28 | disposition home or self-care (01) ==
LOC: FB.ED 18:31
DX: N76.0 Acute vaginitis (principal); B96.89 Other specified bacterial agents as the cause of diseases classified elsewhere; N93.8 Other specified abnormal uterine and vaginal bleeding; N73.9 Female pelvic inflammatory disease, unspecified; E11.9 Type 2 diabetes mellitus without complications; E66.9 Obesity, unspecified; Z68.43 Body mass index [BMI] 50.0-59.9, adult
CPT/HCPCS: 36410; 36415; 51701; 74177; 80053; 81001; 81025; 83690; 83735; 85025; 86140; 87086; 87210; 87491; 87591; 96374; 96375; 96376; 99283; 99284-25; A9270-GY; J0696; J1885; J2405; J3490; J7030; Q9967

== ENCOUNTER 2023-04-10 19:37 | Emergency (ER) | payer BC ==
[2023-04-10] MEDS ORDERED: Metoclopramide 10 MG/2 ML SDV IVPUSH ONE (19:51)
[2023-04-10] MEDS ORDERED: diphenhydrAMINE 50 MG/ML SDV IVPUSH ONE (19:51)
[2023-04-10] MEDS ORDERED: Ketorolac 30 MG/ML SDV IVPUSH ONE (19:51)
[2023-04-10] MEDS ORDERED: Sodium Chloride 0.9% 1,000 ML IV ONE (19:51)
== END 2023-04-10 22:25 | disposition home or self-care (01) ==
LOC: FB.ED 19:37
DX: G43.909 Migraine, unspecified, not intractable, without status migrainosus (principal); I10 Essential (primary) hypertension; E11.9 Type 2 diabetes mellitus without complications; E66.9 Obesity, unspecified; Z68.43 Body mass index [BMI] 50.0-59.9, adult; Z79.899 Other long term (current) drug therapy; Z79.84 Long term (current) use of oral hypoglycemic drugs
CPT/HCPCS: 96361; 96374; 96375; 99283; J1200; J1885; J2765; J7030

== ENCOUNTER 2024-04-23 20:35 | Emergency (ER) | payer BC ==
[2024-04-23] MEDS: Ketorolac 30 MG/ML SDV IM ONE (21:20)
[2024-04-23] MEDS: Metoclopramide 10 MG/2 ML SDV IM ONE (21:20)
== END 2024-04-23 21:45 | disposition home or self-care (01) ==
LOC: FB.ED 20:35
DX: G43.909 Migraine, unspecified, not intractable, without status migrainosus (principal); I10 Essential (primary) hypertension; E11.9 Type 2 diabetes mellitus without complications; E66.9 Obesity, unspecified; Z79.899 Other long term (current) drug therapy
CPT/HCPCS: 96372; 99283; J1885; J2765